=== PATIENT | male | born 1940 | race Caucasian/White ===

== ENCOUNTER → 2016-03-29 | Outpatient (CLI) | payer MEDICARE, OTHER ==
[~2016-03-29] MED LIST: AMARYL2 MG PO; AMITRIPTYLINE25 MG PO; ATIVAN0.5 MG PO; CARDI-OMEGA1000 MG PO; DONEPEZIL HCL10 MG PO; FLAGYL500 MG PO; GABAPENTIN TAB600 MG PO; GABAPENTIN100 MG PO; JANUMET 1000 MG1 TAB PO; LEVAQUIN 5500 MG/TA1 PO; METFORMIN1000 MG PO; NAMENDA XR28 MG PO; NEURONTIN300 MG/CAP PO; OMEPRAZOLE40 MG PO; SERTRALINE HCL100 MG PO; SINEMET 25-1001 TAB PO; VESICARE PO; XANAX0.5 MG PO; ZOFRAN ODT8 MG PO; ZOLOFT 25MG25 MG PO
== END ==
LOC: LAB 09:28
DX: E11.9 Type 2 diabetes mellitus without complications (principal); E78.2 Mixed hyperlipidemia; G62.89 Other specified polyneuropathies

== ENCOUNTER → 2016-10-14 | Outpatient (CLI) | payer MEDICARE, OTHER ==
[2015-11-20 11:26] VITALS: BP 161/71
== END ==
LOC: LAB 14:47
DX: E11.8 Type 2 diabetes mellitus with unspecified complications (principal); E78.5 Hyperlipidemia, unspecified; G20 Parkinson's disease; E53.8 Deficiency of other specified B group vitamins

== ENCOUNTER → 2017-02-09 | Outpatient (CLI) | payer MEDICARE, OTHER ==
[2015-11-20 11:26] VITALS: BP 161/71
[2017-02-09 14:25] LABS: EOS # 0.1 (0.04-0.40); EOS % 0.7 % (0.0-4.0); HEMATOCRIT 41.3 % (42.0-52.0); HEMOGLOBIN 13.5 g/dL (13.5-18.0); LYMPH# 1.9 (1.50-4.00); MEAN CELL VOLUME 92 fl (78-100); MEAN CORPUSCULAR HEMOGLOBIN 30 pg (27-31); MEAN CORPUSCULAR HGB CONC 33 g/dL (33-37); MEAN PLATELET VOLUME 9.9 fl (7.4-10.4); MONO # 0.9 (0.20-0.80); NEU # 7.3 (1.40-6.50); PLATELET COUNT 189 K/mm3 (130-400); RED BLOOD COUNT 4.51 M/mm3 (4.20-5.60); RED CELL DISTRIBUTION WIDTH 13.5 % (11.5-14.5); WHITE BLOOD COUNT 10.3 K/mm3 (4.8-10.8)
[2017-02-09 14:36] LABS: ALBUMIN 4.2 g/dL (3.5-5.0); BUN/CREATININE RATIO 22.8 (6.0-26.0); CALCIUM 10.1 mg/dL (8.4-10.2); POTASSIUM 4.5 mmol/L (3.6-5.0); TOTAL BILIRUBIN 0.6 mg/dL (0.2-1.3); TOTAL PROTEIN 7.1 g/dL (6.3-8.2)
[2017-02-09 15:37] LABS: ERYTHROCYTE SEDIMENTATION RATE 2 mm/hr (0-20)
== END ==
LOC: LAB 14:11
PROVIDERS: Internal Medicine
DX: G62.89 Other specified polyneuropathies (principal); E78.2 Mixed hyperlipidemia; E11.9 Type 2 diabetes mellitus without complications

== ENCOUNTER → 2017-02-15 | Outpatient (CLI) | payer MEDICARE, OTHER ==
[2015-11-20 11:26] VITALS: BP 161/71
== END ==
LOC: LAB 12:58
DX: Z12.11 Encounter for screening for malignant neoplasm of colon (principal)

== ENCOUNTER → 2017-07-20 | Outpatient (CLI) | payer MEDICARE, OTHER ==
[2015-11-20 11:26] VITALS: BP 161/71
[2017-07-20 09:45] LABS: HEMATOCRIT 43.6 % (42.0-52.0); HEMOGLOBIN 14.2 g/dL (13.5-18.0); MEAN CELL VOLUME 90 fl (78-100); MEAN CORPUSCULAR HEMOGLOBIN 29 pg (27-31); MEAN CORPUSCULAR HGB CONC 33 g/dL (33-37); MEAN PLATELET VOLUME 9.9 fl (7.4-10.4); PLATELET COUNT 180 K/mm3 (130-400); RED BLOOD COUNT 4.84 M/mm3 (4.20-5.60); RED CELL DISTRIBUTION WIDTH 14.1 % (11.5-14.5); WHITE BLOOD COUNT 9.3 K/mm3 (4.8-10.8)
[2017-07-20 10:07] LABS: ALBUMIN 4.4 g/dL (3.5-5.0); BUN/CREATININE RATIO 22.1 (6.0-26.0); CALCIUM 9.6 mg/dL (8.4-10.2); POTASSIUM 4.9 mmol/L (3.6-5.0); TOTAL BILIRUBIN 0.6 mg/dL (0.2-1.3); TOTAL PROTEIN 7.7 g/dL (6.3-8.2)
[2017-07-20 11:09] LABS: LYMPHOCYTE 16 % (20-51); MONOCYTE 4 % (3-10); NEUTROPHILS 79 % (42-75)
[2017-07-20 11:22] LABS: ERYTHROCYTE SEDIMENTATION RATE 2 mm/hr (0-20)
== END ==
LOC: LAB 09:01
PROVIDERS: Internal Medicine
DX: E11.9 Type 2 diabetes mellitus without complications (principal); G62.9 Polyneuropathy, unspecified; E78.5 Hyperlipidemia, unspecified; G20 Parkinson's disease

== ENCOUNTER → 2018-05-15 | Outpatient (CLI) | payer MEDICARE, OTHER ==
[2015-11-20 11:26] VITALS: BP 161/71
[2018-05-15 14:33] LABS: BASO # 0.1 (0.02-0.10); EOS # 0.3 (0.04-0.40); EOS % 2.9 % (0.0-4.0); HEMATOCRIT 41.2 % (42.0-52.0); HEMOGLOBIN 13.3 g/dL (13.5-18.0); LYMPH# 1.1 (1.50-4.00); MEAN CELL VOLUME 89 fl (78-100); MEAN CORPUSCULAR HEMOGLOBIN 29 pg (27-31); MEAN CORPUSCULAR HGB CONC 32 g/dL (33-37); MEAN PLATELET VOLUME 9.2 fl (7.4-10.4); MONO # 0.8 (0.20-0.80); NEU # 6.4 (1.40-6.50); PLATELET COUNT 216 K/mm3 (130-400); RED BLOOD COUNT 4.62 M/mm3 (4.20-5.60); RED CELL DISTRIBUTION WIDTH 13.8 % (11.5-14.5); WHITE BLOOD COUNT 8.7 K/mm3 (4.8-10.8)
[2018-05-15 14:43] LABS: ALBUMIN 4.4 g/dL (3.5-5.0); CALCIUM 9.8 mg/dL (8.4-10.2); POTASSIUM 5.1 mmol/L (3.6-5.0); TOTAL BILIRUBIN 0.4 mg/dL (0.2-1.3); TOTAL PROTEIN 7.4 g/dL (6.3-8.2)
[2018-05-15 15:55] LABS: ERYTHROCYTE SEDIMENTATION RATE 7 mm/hr (0-20)
[2018-05-16 13:48] LABS: TESTOSTERONE 262 ng/dL (221-716)
[2018-05-18 22:44] LABS: FOLLICLE STIMULATING HORMONE 7.7 mIU/mL (1.0-12.0); LUTENIZING HORMONE 4.9 mIU/mL (0.6-12.1); PROLACTIN 15.1 ng/mL (3.5-19.4)
== END ==
LOC: LAB 14:19
PROVIDERS: Internal Medicine
DX: E53.8 Deficiency of other specified B group vitamins (principal); E11.9 Type 2 diabetes mellitus without complications; E11.40 Type 2 diabetes mellitus with diabetic neuropathy, unspecified; G20 Parkinson's disease; E78.5 Hyperlipidemia, unspecified

== ENCOUNTER → 2018-06-22 | Outpatient (CLI) | payer MEDICARE, OTHER ==
[2015-11-20 11:26] VITALS: BP 161/71
[2018-06-22 23:39] LABS: FOLLICLE STIMULATING HORMONE 6.8 mIU/mL (1.0-12.0); LUTENIZING HORMONE 4.1 mIU/mL (0.6-12.1)
== END ==
LOC: LAB 11:05
PROVIDERS: Internal Medicine
DX: E29.1 Testicular hypofunction (principal)

== ENCOUNTER → 2018-07-17 | Outpatient (CLI) | payer MEDICARE, OTHER ==
[2015-11-20 11:26] VITALS: BP 161/71
== END ==
LOC: RAD 16:50
DX: R05 Cough (principal)

== ENCOUNTER → 2018-07-26 | Outpatient (CLI) | payer MEDICARE, OTHER ==
[2015-11-20 11:26] VITALS: BP 161/71
[2018-07-26 23:08] LABS: FOLLICLE STIMULATING HORMONE 5.8 mIU/mL (1.0-12.0); LUTENIZING HORMONE 2.3 mIU/mL (0.6-12.1)
== END ==
LOC: RAD 09:14
PROVIDERS: Internal Medicine
DX: E29.1 Testicular hypofunction (principal); R06.02 Shortness of breath; R05 Cough
CPT/HCPCS: Q9967

== ENCOUNTER 2018-12-07 08:51 | Emergency (ER) | payer MEDICARE, OTHER ==
[~2018-12-07] VITALS: Ht 167.6 cm; Wt 69.0 kg
[2018-12-07 09:30] LABS: ALBUMIN 3.9 g/dL (3.4-4.8); POTASSIUM 4.6 mmol/L (3.5-5.1); SODIUM 128 mmol/L (136-145)
[2018-12-07 09:31] LABS: CALCIUM 9.4 mg/dL (8.3-10.5)
[2018-12-07 09:32] LABS: GLUCOSE 174 mg/dL (75-110); TOTAL PROTEIN 6.9 g/dL (6.2-8.1)
[2018-12-07 09:33] LABS: CARBON DIOXIDE 23 mmol/L (23-31); HEMATOCRIT 38.7 % (42.0-52.0); HEMOGLOBIN 12.9 g/dL (13.5-18.0); MEAN CELL VOLUME 83 fl (78-100); MEAN CORPUSCULAR HEMOGLOBIN 28 pg (27-31); MEAN CORPUSCULAR HGB CONC 33 g/dL (33-37); MEAN PLATELET VOLUME 8.8 fl (7.4-10.4); PLATELET COUNT 264 K/mm3 (130-400); RED BLOOD COUNT 4.66 M/mm3 (4.20-5.60); RED CELL DISTRIBUTION WIDTH 13.3 % (11.5-14.5); WHITE BLOOD COUNT 10.5 K/mm3 (4.8-10.8)
[2018-12-07 09:34] LABS: TOTAL BILIRUBIN 0.4 mg/dL (0.2-1.2)
[2018-12-07 09:38] LABS: AST-SGOT 15 U/L (5-34)
[2018-12-07 09:39] LABS: ALT/SGPT 8 U/L (0-55)
[2018-12-07 09:40] LABS: BAND 1 % (0-10); LYMPHOCYTE 7 % (20-51); MONOCYTE 8 % (3-10); NEUTROPHILS 82 % (42-75)
[2018-12-07 09:49] LABS: TROPONIN-I < 0.03 ng/mL (<0.030)
[2018-12-07 10:12] LABS: URINE APPEARANCE CLEAR; URINE COLOR YELLOW
[2018-12-07 10:13] LABS: URINE BILIRUBIN NEGATIVE (NEGATIVE); URINE BLOOD TRACE (NEGATIVE); URINE GLUCOSE 50 mg/dL mg/dL (NEGATIVE); URINE KETONE NEGATIVE (NEGATIVE); URINE LEUKOCYTE ESTERASE NEGATIVE (NEGATIVE); URINE MUCUS PRESENT (NOT PRESENT); URINE NITRATE NEGATIVE (NEGATIVE); URINE PROTEIN(semi-quant) TRACE mg/dL (NEGATIVE); URINE UROBILINOGEN NORMAL (NORMAL)
[2018-12-07] MEDS ORDERED: SINEMET 25-1001 EACH PO ×2 (10:20→10:21)
[2018-12-07] MEDS ORDERED: CYANOCOBAL1000 MCG/1 IM (10:21)
[2018-12-07] MEDS ORDERED: GABAPENTIN100 MG PO (10:22)
[2018-12-07] MEDS ORDERED: ARICEPT10 M1 PO (10:22)
[2018-12-07] MEDS ORDERED: LORAZEPAM0.5 M1 PO (10:23)
[2018-12-07] MEDS ORDERED: NAMENDA10 MG PO (10:23)
[2018-12-07] MEDS ORDERED: ANAPROX DS550 M1 PO (10:24)
[2018-12-07] MEDS ORDERED: ZOLOFT 100MG100 MG PO (10:25)
[2018-12-07] MEDS ORDERED: FORTESTA10 MG/0.5 TP (10:25)
[2018-12-07 11:35] VITALS: BP 168/76
== END 2018-12-07 11:36 | disposition other institution (70) ==
LOC: ED 08:51
PROVIDERS: Nurse Practitioner Family
DX: F03.90 Unspecified dementia, unspecified severity, without behavioral disturbance, psychotic disturbance, mood disturbance, and anxiety (principal); G93.41 Metabolic encephalopathy; E87.1 Hypo-osmolality and hyponatremia; E11.9 Type 2 diabetes mellitus without complications; G20 Parkinson's disease; F17.210 Nicotine dependence, cigarettes, uncomplicated; Z79.84 Long term (current) use of oral hypoglycemic drugs
CPT/HCPCS: A4216; J0696; J7030

== ENCOUNTER 2018-12-14 12:32 | Inpatient (IN) | payer MEDICARE, OTHER ==
[~2018-12-14] VITALS: Ht 170.2 cm; Wt 66.5 kg
[~2018-12-14 12:32] MED LIST changes: +ANAPROX DS550 M1 PO; +ARICEPT10 M1 PO; +CYANOCOBAL1000 MCG/1 IM; +FORTESTA10 MG/0.5 TP; +LISINOPRIL10 MG PO; +LORAZEPAM0.5 M1 PO; +NAMENDA10 MG PO; +SINEMET 25-1001 EACH PO; +ZOLOFT 100MG100 MG PO
[2018-12-14 18:24] VITALS: BP 107/63
[2018-12-14 19:37] VITALS: BP 107/63
[2018-12-15 06:04] VITALS: BP 129/64
[2018-12-15 18:51] VITALS: BP 111/56
[2018-12-16 06:16] VITALS: BP 164/72
[2018-12-16 18:08] VITALS: BP 108/58
[2018-12-17 06:18] VITALS: BP 147/66
[2018-12-17 06:54] LABS: BASO # 0.1 (0.02-0.10); EOS # 0.2 (0.04-0.40); EOS % 2.3 % (0.0-4.0); HEMATOCRIT 37.8 % (42.0-52.0); HEMOGLOBIN 12.1 g/dL (13.5-18.0); MEAN CELL VOLUME 85 fl (78-100); MEAN CORPUSCULAR HEMOGLOBIN 27 pg (27-31); MEAN CORPUSCULAR HGB CONC 32 g/dL (33-37); MEAN PLATELET VOLUME 8.8 fl (7.4-10.4); MONO # 0.6 (0.20-0.80); PLATELET COUNT 247 K/mm3 (130-400); RED BLOOD COUNT 4.47 M/mm3 (4.20-5.60); RED CELL DISTRIBUTION WIDTH 13.7 % (11.5-14.5); WHITE BLOOD COUNT 7.1 K/mm3 (4.8-10.8)
[2018-12-17 07:09] LABS: CALCIUM 9.5 mg/dL (8.3-10.5); POTASSIUM 4.8 mmol/L (3.5-5.1)
[2018-12-17 17:22] VITALS: BP 96/49
[2018-12-18 06:37] VITALS: BP 159/77
[2018-12-18 18:06] VITALS: BP 92/43
[2018-12-19] VITALS (7 sets, daily range): BP systolic 86–140; BP diastolic 38–63
[2018-12-19 06:41] LABS: POTASSIUM 5.2 mmol/L (3.5-5.1)
[2018-12-19 06:42] LABS: CALCIUM 9.6 mg/dL (8.3-10.5)
[2018-12-20 06:04] VITALS: BP 149/74
[2018-12-20 07:18] LABS: POTASSIUM 5.6 mmol/L (3.5-5.1)
[2018-12-20 07:19] LABS: CALCIUM 9.8 mg/dL (8.3-10.5)
[2018-12-20 11:57] LABS: POTASSIUM 5.1 mmol/L (3.5-5.1)
[2018-12-20 18:23] VITALS: BP 115/53
[2018-12-21 06:17] VITALS: BP 129/63
[2018-12-21 07:03] LABS: POTASSIUM 5.3 mmol/L (3.5-5.1)
[2018-12-21 16:46] VITALS: BP 148/69
[2018-12-21 18:44] VITALS: BP 116/65
[2018-12-22 06:23] VITALS: BP 168/70
[2018-12-22 07:23] LABS: POTASSIUM 5.5 mmol/L (3.5-5.1)
[2018-12-22 07:25] LABS: CALCIUM 9.5 mg/dL (8.3-10.5)
[2018-12-22 16:24] LABS: POTASSIUM 5.1 mmol/L (3.5-5.1)
[2018-12-22 16:25] LABS: CALCIUM 9.7 mg/dL (8.3-10.5)
[2018-12-22 17:43] VITALS: BP 131/65
[2018-12-23 06:25] VITALS: BP 179/62
[2018-12-23 18:23] VITALS: BP 122/74
[2018-12-24 06:22] VITALS: BP 172/79
[2018-12-24 07:25] LABS: POTASSIUM 4.8 mmol/L (3.5-5.1)
[2018-12-24 07:26] LABS: CALCIUM 9.5 mg/dL (8.3-10.5)
[2018-12-24] MEDS ORDERED: ARICEPT10 M1 PO (09:39)
[2018-12-24] MEDS ORDERED: AMLODIPINE BES2.5 MG PO (09:39)
[2018-12-24] MEDS ORDERED: ANAPROX DS550 M1 PO (09:39)
[2018-12-24] MEDS ORDERED: ACETAMINOPHEN325 M1 PO (09:40)
[2018-12-24] MEDS ORDERED: GABAPENTIN100 MG PO (09:40)
[2018-12-24] MEDS ORDERED: LORAZEPAM0.5 M1 PO (09:41)
[2018-12-24] MEDS ORDERED: SINEMET 25-1001 EACH PO ×2 (09:41→09:42)
[2018-12-24] MEDS ORDERED: DESYREL50 MG PO (09:41)
[2018-12-24] MEDS ORDERED: OMEPRAZOLE40 MG PO (09:42)
[2018-12-24] MEDS ORDERED: FORTESTA10 MG/0.5 TP (09:42)
[2018-12-24] MEDS ORDERED: NAMENDA10 MG PO (09:42)
[2018-12-24] MEDS ORDERED: AMARYL 2MG T2 MG/TAB PO (09:43)
[2018-12-24] MEDS ORDERED: METFORMIN HYD1000 MG PO (09:43)
[2018-12-24] MEDS ORDERED: CYANOCOBAL1000 MCG/1 IM (09:43)
[2018-12-24 11:53] VITALS: BP 150/75
[2018-12-24 12:56] VITALS: BP 150/75
== END 2018-12-24 13:37 | DRG 948 ==
LOC: MED/SURG 12:32
PROVIDERS: Physician Assistant; ADMIT Nurse Practitioner Primary Care
DX: R53.81 Other malaise (principal); E87.1 Hypo-osmolality and hyponatremia; F05 Delirium due to known physiological condition; T17.818A Gastric contents in other parts of respiratory tract causing other injury, initial encounter; N17.9 Acute kidney failure, unspecified; G20 Parkinson's disease; G47.00 Insomnia, unspecified; Z66 Do not resuscitate; R13.10 Dysphagia, unspecified; N52.9 Male erectile dysfunction, unspecified; E53.8 Deficiency of other specified B group vitamins; E11.40 Type 2 diabetes mellitus with diabetic neuropathy, unspecified; I10 Essential (primary) hypertension; Z88.2 Allergy status to sulfonamides
CPT/HCPCS: J1650; J1815; J3420; J7030